=== PATIENT | male | born 1990 | race Caucasian/White ===

== ENCOUNTER 2017-10-26 09:27 | Emergency (ER) | payer OTHER ==
[2017-10-26 09:34] VITALS: BP 149/82
[2017-10-26] MEDS ORDERED: TDAP ADULT 0.5 ML INJ (BOOSTRIX) IM ONE (09:35)
--- NOTE | 2017-10-26 09:44 | EDPHY ---
H & P Stated Complaint: L foot puncture wound by nail today. Time Seen by Provider: 10/26/17 09:36 HPI/ROS: CHIEF COMPLAINT: Foot injury HISTORY OF PRESENT ILLNESS: The patient is a 27-year-old man who comes to the emergency department complaining of a puncture wound to his left foot. He states that he kicked a nail and it went through his shoe and into the medial aspect of his left foot. He thinks that it penetrated approximately 1 cm. It does not appear to communicate with the joint space. This happened about an hour prior to arrival. He denies other injuries. Severity: Moderate Modifying factors: None REVIEW OF SYSTEMS: Constitutional: denies: chills, fever, recent illness, recent injury EENTM: denies: blurred vision, double vision, nose congestion Respiratory: denies: cough, shortness of breath Cardiac: denies: chest pain, irregular heart rate, lightheadedness, palpitations Gastrointestinal/Abdominal: denies: abdominal pain, diarrhea, nausea, vomiting, blood streaked stools Genitourinary: denies: dysuria, frequency, hematuria, pain Musculoskeletal: denies: joint pain, muscle pain Skin: See HPI Neurological: denies: headache, numbness, paresthesia, tingling, dizziness, weakness Hematologic/Lymphatic: denies: blood clots, easy bleeding, easy bruising Immunologic/allergic: denies: HIV/AIDS, transplant 10 systems reviewed and negative except as noted EXAM: GENERAL: Well-appearing, well-nourished and in no acute distress. HEAD: Atraumatic, normocephalic. EYES: Pupils equal round and reactive to light, extraocular movements intact, sclera anicteric, conjunctiva are normal. ENT: TMs normal, nares patent, oropharynx clear without exudates. Moist mucous membranes. NECK: Normal range of motion, supple without lymphadenopathy or JVD. LUNGS: Breath sounds clear to auscultation bilaterally and equal. No wheezes rales or rhonchi. HEART: Regular rate and rhythm without murmurs, rubs or gallops. ABDOMEN: Soft, nontender, normoactive bowel sounds. No guarding, no rebound. No masses appreciated. BACK: No CVA tenderness, no spinal tenderness, step-offs or deformities EXTREMITIES: Small puncture wound to left medial foot. Proximal to MTP joint. Bleeding controlled. No visible foreign body. NEUROLOGICAL: Cranial nerves II through XII grossly intact. Normal speech, normal gait. 5/5 strength, normal movement in all extremities, normal sensation , normal reflexes PSYCH: Normal mood, normal affect. SKIN: Warm, dry, normal turgor, no visible rashes or lesions. Source: Patient - Personal History Current Tetanus/Diphtheria Vaccine: Unsure Current Tetanus Diphtheria and Acellular Pertussis (TDAP): Unsure - Medical/Surgical History Hx Asthma: Yes Hx Chronic Respiratory Disease: No Hx Diabetes: No Hx Cardiac Disease: No Hx Renal Disease: No Hx Cirrhosis: No Hx Alcoholism: No Hx HIV/AIDS: No Hx Splenectomy or Spleen Trauma: No Other PMH: Asthma - Family History Significant Family History: No pertinent family hx - Social History Smoking Status: Never smoked Alcohol Use: None Constitutional: Initial Vital Signs Temperature (C) 36.7 C 10/26/17 09:30 Heart Rate 74 10/26/17 09:30 Respiratory Rate 16 10/26/17 09:30 Blood Pressure 149/82 H 10/26/17 09:30 O2 Sat (%) 95 10/26/17 09:30 O2 Delivery Mode Room Air Allergies/Adverse Reactions: No Known Allergies Allergy (Verified 10/26/17 09:34) Home Medications: Medication Instructions Recorded levOFLOXACIN [levAQUIN] 750 mg PO DAILY #4 tab 10/26/17 Medical Decision Making ED Course/Re-evaluation: Patient's wound was cleaned thoroughly. Tetanus shot was administered and I will start him on Levaquin. Discussed the risks associated with Levaquin including tendon injuries. The patient lifts weights daily and we discussed modifications he should use. Differential Diagnosis: Partial list of the Differential diagnosis considered include but were not limited to; puncture wound, foreign body and although unlikely based on the history and physical exam, I also considered fracture, open joint. I discussed these differential diagnoses and the plan with the patient as well as the usual and expected course. The patient understands that the diagnosis is provisional and that in medicine we are not always correct and that further workup is often warranted. Usual and customary warnings were given. All of the patient's questions were answered. The patient was instructed to return to the emergency department should the symptoms at all worsen or return, otherwise to followup with the physician as we discussed. - Data Points Medications Given: Discontinued Medications Diphtheria/Tetanus/Acell Pertussis (Boostrix) 0.5 ml IM .ONCE ONE Stop: 10/26/17 09:36 Last Admin: 10/26/17 09:41 Dose: 0.5 ml Levofloxacin (Levaquin) 750 mg PO EDNOW ONE PRN Reason: Protocol Stop: 10/26/17 09:41 Last Admin: 10/26/17 09:46 Dose: 750 mg Departure - Departure Disposition: Home, Routine, Self-Care Clinical Impression: Puncture wound of left foot Qualifiers: Encounter type: initial encounter Qualified Code(s): S91.332A - Puncture wound without foreign body, left foot, initial encounter Condition: Fair Instructions: Puncture Wound (ED) Referrals: NONE *PRIMARY CARE P,. [Primary Care Provider] - As per Instructions Stand Alone Forms: Work Comp Follow Up Prescriptions: levOFLOXACIN [levAQUIN] 750 mg PO DAILY #4 tab
== END 2017-10-26 09:55 | disposition home or self-care (01) ==
LOC: CED 09:27
DX: S91.332A Puncture wound without foreign body, left foot, initial encounter (principal); W26.8XXA Contact with other sharp object(s), not elsewhere classified, initial encounter; Y99.0 Civilian activity done for income or pay; Z23 Encounter for immunization; J45.909 Unspecified asthma, uncomplicated